=== PATIENT | female | born 1990 | race Caucasian/White ===

== ENCOUNTER → 2024-12-06 14:05 | Outpatient (REF) | payer OTHER, SELFPAY | LOC: HWRAD 14:05 | PROVIDERS: ATTENDING PHYSICIAN Obstetrics & Gynecology | DX: Z13.0 Encounter for screening for diseases of the blood and blood-forming organs and certain disorders involving the immune mechanism (principal); Z34.90 Encounter for supervision of normal pregnancy, unspecified, unspecified trimester; Z11.3 Encounter for screening for infections with a predominantly sexual mode of transmission | CPT/HCPCS: 76801 ==

== ENCOUNTER 2025-04-30 21:45 | Inpatient (IN) | payer OTHER, SELFPAY ==
[2025-04-29 21:49] VITALS: BMI 29.7
[2025-04-29 22:14] VITALS: BP 142/93
[2025-04-29 22:28] LABS: Hematocrit 24.4 % (37.0-47.0); Hemoglobin 8.6 g/dL (12.0-16.0); Mean Corp Hgb Conc. 35.2 g/dL (33.0-37.0); Mean Corpuscular Volume 89.7 fL (81.0-99.0); Nucleated Red Blood Cells % 0 %; Platelet Count 223 10^3/uL (130-400); Red Cell Dist. Width 11.9 % (11.5-14.5)
[2025-04-29 22:29] LABS: Urine Character Clear (Clear)
[2025-04-29 22:43] LABS: Urine Red Blood Cell 0-2 /HPF (0-2); Urine Squamous Cell >30 /LPF (Few); Urine Urothelial Cell 0-2 /LPF (FEW); Urine White Cell 70-80 /HPF (0-5)
[2025-04-29 22:53] LABS: ALT (SGPT) 19 U/L (0-35); AST (SGOT) 22 U/L (14-36); Albumin 3.3 g/dl (3.5-5.0); Alkaline Phosphatase 77 U/L (38-126); Blood Urea Nitrogen 24 mg/dl (7-17); Carbon Dioxide 27 mmol/L (22-30); Chloride 106 mmol/L (98-107); Estimated Creatinine Clearance 45 ml/min; Glucose 93 mg/dl (70-99); Potassium 3.6 mmol/L (3.5-5.1); Sodium 137 mmol/L (135-145); Total Protein 6.3 g/dl (6.3-8.2); eGFR 31.51
[2025-04-29 23:03] LABS: Calcium 15.4 mg/dl (8.4-10.2)
[2025-04-29] MEDS: LR 1000 IV (23:53)
[2025-04-30 00:36] LABS: Vitamin D, 25-OH*** > 126 ng/mL (30-80)
--- NOTE | 2025-04-30 02:52 | DOWNTIME ---
There was a [employer] Downtime on 04/30/2025 from 0100 to 04/30/2025 at 0215. Downtime documentation of patient's care, including medication administrations, has been reconciled in the electronic record per guidelines. Refer to the
patient's paper chart under the miscellaneous tab to see printed paper medication records and downtime forms.
[2025-04-30 06:46] LABS: Hematocrit 23.5 % (37.0-47.0); Hemoglobin 8.3 g/dL (12.0-16.0); Mean Corp Hgb Conc. 35.3 g/dL (33.0-37.0); Mean Corpuscular Volume 89.4 fL (81.0-99.0); Platelet Count 216 10^3/uL (130-400); Red Cell Dist. Width 11.9 % (11.5-14.5)
[2025-04-30] MEDS: LR 1000 IV (06:53)
[2025-04-30 07:26] LABS: ALT (SGPT) 18 U/L (0-35); AST (SGOT) 20 U/L (14-36); Albumin 3.1 g/dl (3.5-5.0); Alkaline Phosphatase 76 U/L (38-126); Blood Urea Nitrogen 24 mg/dl (7-17); Carbon Dioxide 28 mmol/L (22-30); Chloride 109 mmol/L (98-107); Estimated Creatinine Clearance 47 ml/min; Glucose 84 mg/dl (70-99); Potassium 3.6 mmol/L (3.5-5.1); Sodium 138 mmol/L (135-145); Total Protein 6.0 g/dl (6.3-8.2); eGFR 33.41
[2025-04-30 07:48] LABS: Calcium 14.7 mg/dl (8.4-10.2)
--- NOTE | 2025-04-30 11:12 | W.CON.NEPH ---
Consultation
-
Date/Time Consultation Requested: 04/30/2025 9 AM
Date/Time Consultation Performed: 04/30/2025 11 AM
Requesting Provider: Dr. Lee
Performing Provider: Dr. Sims
Reason for Consultation: ADRY, hypercalcemia
Medical History
-
Chief Complaint: Hypercalcemia
History of Present Illness:
This is a 34-year-old female with very limited past medical history if any at all. She may have had some gluten sensitivity in the past. This is her first . It has otherwise been completely uneventful. She does report that 2 years ago
when she had her initial blood work her values were essentially normal. It was commented that her vitamin D was 30 but given her gluten sensitivity that 2000 units of vitamin D a day may be helpful for that. She was only able to obtain 5000 unit
tablets and started taking those at that time. She does state that it did help her gluten sensitivity. She has been taking 5000 units of vitamin D daily since then. During the
She had been doing very well until recently when she had about a 4-day spell of nausea with slight decreased intake. It was recommended that she take Tums which she took for 3 or 4 days at 1000 mg twice daily. She then transition to Pepcid which
had controlled her symptoms. She still drinks approximately 1 gallon of fluid per day mostly distilled water. Given the nausea however, she did have blood work performed which disclosed a creatinine of 2 and a calcium of 15. For this she was sent
to the hospital for admission.
Past Medical History
Gluten sensitivity
Past Surgical History: None
Social History
Tobacco: Non-Smoker
Alcohol: Occasional (Prepregnancy only)
Family History
Heart disease, hypertension, cancer. Ovarian cancer on father side, lung cancer on mother side.
Allergies / Home Medications
Allergy/AdvReac Type Severity Reaction Status Date / Time
penicillin G Allergy Unknown Unknown Verified 04/29/25 21:52
�Medication �Instructions �Recorded �Confirmed �Type
Iron (ferrous sulfate) 1 tab PO DAILY 04/29/25 04/29/25 History
1 tab PO DAILY 04/29/25 04/29/25 History
Review of Systems
-
Negative
All other systems: Negative unless noted
Physical Exam
Vital Signs
Vital Signs
Temp Pulse Resp BP Pulse Ox
98.5 F 81 18 142/93 100
04/29/25 22:14 04/29/25 22:14 04/29/25 22:14 04/29/25 22:14 04/29/25 22:14
Lab Results
WBC 10.6 10^3/uL (4.8-10.8) 04/30/25 06:23
RBC 2.63 10^6/uL (4.20-5.40) L 04/30/25 06:23
Hgb 8.3 g/dL (12.0-16.0) L 04/30/25 06:23
Hct 23.5 % (37.0-47.0) L 04/30/25 06:23
Plt Count 216 10^3/uL (130-400) 04/30/25 06:23
Sodium 138 mmol/L (135-145) 04/30/25 06:23
Potassium 3.6 mmol/L (3.5-5.1) 04/30/25 06:23
Chloride 109 mmol/L (98-107) H 04/30/25 06:23
Carbon Dioxide 28 mmol/L (22-30) 04/30/25 06:23
BUN 24 mg/dl (7-17) H 04/30/25 06:23
Creatinine 2.0 mg/dL (0.6-1.0) H 04/30/25 06:23
eGFR 33.41 04/30/25 06:23
Glucose 84 mg/dl (70-99) 04/30/25 06:23
Calcium 14.7 mg/dl (8.4-10.2) H* 04/30/25 06:23
Albumin 3.1 g/dl (3.5-5.0) L 04/30/25 06:23
Laboratory Tests
04/29/25 04/29/25
21:19 22:19
Vitamin D 25-Hydroxy > 126 H
PTH Intact 6.6 L
February 24, 2023 potassium 3.7, creatinine 0.9, BUN 7, calcium 9.1, vitamin D 30, alk phos 46, A1c 4.6
04/28/2025 iron 61, IBC 440, iron saturation 14, ferritin 40, potassium 3.2, creatinine 2.07, BUN 21, calcium 15, albumin 3.4, alk phos 84, AST 18, ALT 14, hemoglobin 9
Physical Exam
Patient is awake alert oriented and in no distress. Mood and affect were pleasant, insight and judgment were good. Pupils are equal round and reactive to light, extraocular movements are intact, sclera were anicteric. Hearing was normal, ears and
nose are intact. Oropharynx was clear. Neck was supple with trachea midline and no thyromegaly. Heart was regular rate and rhythm without rubs. Lower extremities without edema. Lungs were clear to auscultation bilaterally and with normal
excursion. Abdomen was soft, nontender, with normal active bowel sounds, and no hepatosplenomegaly. Skin was without rash and with normal turgor.
Data Reviewed
-
Labs: Labs Reviewed by me
Old Records: Reviewed
Assessment/Plan
-
Assessment
32-week
ADRY
Hypercalcemia
Hypervitamintosis D
Plan
complete workup for hypercalcemia, additional labs added
24-hour urine collection
Change IV fluids to saline at 150/h
Follow BMP daily
Will keep her in the hospital until calcium level is essentially normal
Check EKG
Okay for IV iron
Discussed with patient and
[2025-04-30 13:06] LABS: Magnesium 1.3 mg/dl (1.6-2.3)
[2025-04-30] MEDS: NSS 1000 IV ×2 (13:09→19:31)
[2025-04-30] MEDS: FLUSH (NSS) 1 FLUSH IV (13:14)
[2025-04-30] MEDS: FERRLECIT 110 MG IV (14:05)
--- NOTE | 2025-04-30 22:22 | PTCARENOTE ---
Pt placed on tele monitor and assessed. most recent calcium 14.7. NSR on monitor, HR 70-100. Pt denies CP/SOB/palpitations at this time. normal heart and lung sounds noted. educated patient to have LDRP nurse contact ICU for any changes in
assessment. will continue to monitor rhythm from ICU.
[2025-04-30 22:26] LABS: 24 Hour Urine Total Volume 4300 ml
[2025-05-01] MEDS: NSS 1000 IV ×3 (02:10→17:10)
[2025-05-01 05:44] LABS: Hematocrit 23.2 % (37.0-47.0); Hemoglobin 8.1 g/dL (12.0-16.0); Mean Corp Hgb Conc. 34.9 g/dL (33.0-37.0); Mean Corpuscular Volume 90.3 fL (81.0-99.0); Platelet Count 194 10^3/uL (130-400); Red Cell Dist. Width 12.0 % (11.5-14.5)
[2025-05-01 06:17] LABS: Blood Urea Nitrogen 25 mg/dl (7-17); Calcium 13.4 mg/dl (8.4-10.2); Carbon Dioxide 25 mmol/L (22-30); Chloride 112 mmol/L (98-107); Estimated Creatinine Clearance 52 ml/min; Glucose 76 mg/dl (70-99); Potassium 3.6 mmol/L (3.5-5.1); Sodium 138 mmol/L (135-145); eGFR 37.92
--- NOTE | 2025-05-01 09:54 | W.PN.NEPH.PH ---
Today's Communication / Plan
-
IVF
Assessment/Plan
-
Assessment
32-week
ADRY
Hypercalcemia
Hypervitamintosis D
Plan
hypercalcemia labs pending
IVF NSS 120ml/hr
higher BP likely from calcium and NSS
Will keep her in the hospital until calcium level is essentially normal
replete Mag
-
-
Date of Service: May 01, 2025
CC / HPI / ROS
-
Chief Complaint:
ADRY, hypercalcemia
History of Present Illness:
BP up
ADRY/Cr down to 1.8
Calcium down to 13.4
Mag low
Review of Systems:
no CP/SOB
edema
Labs
-
Labs:
WBC 9.9 10^3/uL (4.8-10.8) 05/01/25 05:25
RBC 2.57 10^6/uL (4.20-5.40) L 05/01/25 05:25
Hgb 8.1 g/dL (12.0-16.0) L 05/01/25 05:25
Hct 23.2 % (37.0-47.0) L 05/01/25 05:25
Plt Count 194 10^3/uL (130-400) 05/01/25 05:25
Sodium 138 mmol/L (135-145) 05/01/25 05:25
Potassium 3.6 mmol/L (3.5-5.1) 05/01/25 05:25
Chloride 112 mmol/L (98-107) H 05/01/25 05:25
Carbon Dioxide 25 mmol/L (22-30) 05/01/25 05:25
BUN 25 mg/dl (7-17) H 05/01/25 05:25
Creatinine 1.8 mg/dL (0.6-1.0) H 05/01/25 05:25
eGFR 37.92 05/01/25 05:25
Glucose 76 mg/dl (70-99) 05/01/25 05:25
Calcium 13.4 mg/dl (8.4-10.2) H* 05/01/25 05:25
Phosphorus 2.6 mg/dl (2.5-4.5) 04/30/25 12:13
Albumin 3.1 g/dl (3.5-5.0) L 04/30/25 06:23
Physical Exam
-
Vital Signs:
Vital Signs
Temp Pulse Resp BP Pulse Ox
98.5 F 81 18 142/93 100
04/29/25 22:14 04/29/25 22:14 04/29/25 22:14 04/29/25 22:14 04/29/25 22:14
Cardiovascular:: Regular rate and rhythm
Respiratory:: Bilateral: Coarse
Lung Excursion:: Normal
Abdomen:: Nontender and Soft
Bowel Sounds:: Normal
Extremity Edema:: +1: Bilateral:
[2025-05-01] MEDS: MAGNESIUM SULFATE 50 IV (10:16)
[2025-05-01] MEDS: NSS IV (10:34)
--- NOTE | 2025-05-01 11:15 | PTCARENOTE ---
focused cardiac assessment completed @ beside @ 0730; normal S1, S2 heart tones; asymptomatic. SR on monitor; cardiac rhythm strip posted to chart. Also, in contact w primary RN to address low magnesium level madelyn PAGE this AM; IV rider in progress.
Will continue to monitor.
[2025-05-01] MEDS: FERRLECIT 110 MG IV (14:20)
--- NOTE | 2025-05-01 21:39 | PTCARENOTE ---
Assessed pt. at bedside. NSR on tele, HR 60-80s. +1 LE edema. + DP pulses. Pulmonary assessment WNL. Pt. without complaints at this time- encouraged to report any changes to LDRP RN who can then discuss with RECHARGER. Continuing to monitor on tele
monitor.
[2025-05-02] MEDS: NSS 1000 IV ×3 (01:56→22:23)
[2025-05-02 06:12] LABS: Hematocrit 19.7 % (37.0-47.0); Hemoglobin 6.6 g/dL (12.0-16.0); Mean Corp Hgb Conc. 33.5 g/dL (33.0-37.0); Mean Corpuscular Volume 90.0 fL (81.0-99.0); Platelet Count 204 10^3/uL (130-400); Red Cell Dist. Width 12.3 % (11.5-14.5)
[2025-05-02 06:40] LABS: Hematocrit 21.2 % (37.0-47.0); Hemoglobin 7.4 g/dL (12.0-16.0); Mean Corp Hgb Conc. 34.9 g/dL (33.0-37.0); Mean Corpuscular Volume 89.8 fL (81.0-99.0); Platelet Count 196 10^3/uL (130-400); Red Cell Dist. Width 12.0 % (11.5-14.5)
[2025-05-02 07:29] LABS: Calcium 12.4 mg/dl (8.4-10.2); Magnesium 1.4 mg/dl (1.6-2.3)
--- NOTE | 2025-05-02 07:30 | PTCARENOTE ---
Assessed the patient at bedside, A&Ox4, pallor appearance, denied pain throughout, on RA, NSR, B/L LE mild edema, on IVF, GI/ continent. Educated both patient and to notify the team when concerning any abnormal changes. Continue to monitor
on Telemetry.
[2025-05-02 07:35] LABS: Blood Urea Nitrogen 21 mg/dl (7-17); Calcium 12.4 mg/dl (8.4-10.2); Carbon Dioxide 23 mmol/L (22-30); Chloride 115 mmol/L (98-107); Estimated Creatinine Clearance 55 ml/min; Glucose 79 mg/dl (70-99); Potassium 3.2 mmol/L (3.5-5.1); Sodium 137 mmol/L (135-145); eGFR 40.61
[2025-05-02] MEDS: LASIX 20 MG IV (10:40)
--- NOTE | 2025-05-02 12:15 | W.PN.NEPH.PH ---
Today's Communication / Plan
-
cont ivf
replete k and mg
lasix given x 1
Assessment/Plan
-
Assessment
32-week
ADRY
Hypercalcemia
Hypervitamintosis D
Plan
IVF NSS 120ml/hr
Will keep her in the hospital until calcium level is essentially normal
replete Mag 1g IV
K 40meq PO
lasix 20 IV x 1
D/W OB attending , nurse
-
-
Date of Service: May 02, 2025
CC / HPI / ROS
-
Chief Complaint:
ADRY, hypercalcemia
History of Present Illness:
BP up
ADRY/Cr down
Calcium down
Mag low
Review of Systems:
no CP/SOB
edema
Labs
-
Labs:
WBC 8.7 10^3/uL (4.8-10.8) 05/02/25 06:26
RBC 2.36 10^6/uL (4.20-5.40) L 05/02/25 06:26
Hgb 7.4 g/dL (12.0-16.0) L 05/02/25 06:26
Hct 21.2 % (37.0-47.0) L 05/02/25 06:26
Plt Count 196 10^3/uL (130-400) 05/02/25 06:26
Sodium 137 mmol/L (135-145) 05/02/25 05:53
Potassium 3.2 mmol/L (3.5-5.1) L 05/02/25 05:53
Chloride 115 mmol/L (98-107) H 05/02/25 05:53
Carbon Dioxide 23 mmol/L (22-30) 05/02/25 05:53
BUN 21 mg/dl (7-17) H 05/02/25 05:53
Creatinine 1.7 mg/dL (0.6-1.0) H 05/02/25 05:53
eGFR 40.61 05/02/25 05:53
Glucose 79 mg/dl (70-99) 05/02/25 05:53
Calcium 12.4 mg/dl (8.4-10.2) H 05/02/25 05:53
Calcium 12.4 mg/dl (8.4-10.2) H 05/02/25 05:53
Phosphorus 2.6 mg/dl (2.5-4.5) 04/30/25 12:13
Albumin 3.1 g/dl (3.5-5.0) L 04/30/25 06:23
Physical Exam
-
Vital Signs:
Vital Signs
Temp Pulse Resp BP Pulse Ox
98.5 F 78 18 128/82 100
04/29/25 22:14 05/02/25 10:40 04/29/25 22:14 05/02/25 10:40 04/29/25 22:14
Cardiovascular:: Regular rate and rhythm
Respiratory:: Bilateral: Coarse
Lung Excursion:: Normal
Abdomen:: Nontender and Soft
Bowel Sounds:: Normal
Extremity Edema:: +1: Bilateral:
[2025-05-02] MEDS: MAGNESIUM SULFATE 100 IV (12:57)
[2025-05-02] MEDS: KCL 40 MEQ PO (12:57)
[2025-05-02] MEDS: FERRLECIT 110 MG IV (14:22)
[2025-05-02] MEDS: POLYSPORIN OINTMENT 1 APPLIC TOPICAL (16:38)
--- NOTE | 2025-05-02 21:41 | PTCARENOTE ---
Patient is AAOx4 and able to make her needs known. MAEX4. Discussed monitoring with the patient. Does not verbalize any pain or discomfort at this time. Denies nausea. NSR on the monitor with HR in the 70s. Clear breath sounds. Bowel sounds are
audible. SCDs are intact. Patient remains on telemonitor.
[2025-05-02] MEDS: PEPCID 20 MG PO (22:22)
[2025-05-03 06:24] LABS: Hematocrit 21.2 % (37.0-47.0); Hemoglobin 7.2 g/dL (12.0-16.0)
[2025-05-03 06:47] LABS: Blood Urea Nitrogen 15 mg/dl (7-17); Calcium 11.9 mg/dl (8.4-10.2); Carbon Dioxide 22 mmol/L (22-30); Chloride 114 mmol/L (98-107); Estimated Creatinine Clearance 63 ml/min; Glucose 71 mg/dl (70-99); Magnesium 1.3 mg/dl (1.6-2.3); Potassium 3.3 mmol/L (3.5-5.1); Sodium 137 mmol/L (135-145); eGFR 47.19
--- NOTE | 2025-05-03 09:00 | PTCARENOTE ---
Pt assessed in LDRP, AOx3 with no complaints, at bedside, playing cards with pt...S1 S2, SR with 1st degree AVB on tele, HR in 80s. Strip printed and sent to LDRP via tube system. +1 LE edema noted, L>R. AM labs noted and communicated to
Nephrology Dr. Caldwell and primary RN, plan of care discussed. Safe environment ongoing.
[2025-05-03] MEDS: LASIX 40 MG IV (11:46)
[2025-05-03] MEDS: MAGNESIUM SULFATE 50 IV (11:46)
[2025-05-03] MEDS: NSS with KCL 40 MEQ 1000 IV ×2 (11:58→20:37)
--- NOTE | 2025-05-03 12:32 | W.PN.NEPH.PH ---
Today's Communication / Plan
-
see a/p
Assessment/Plan
-
Assessment
32-week
ADRY
Hypercalcemia
Hypervitamintosis D
Plan
IVF NSS 120ml/hr
Will keep her in the hospital until calcium level is essentially normal
replete Mag 2g IV
K 40meq PO and IV
lasix 40 IV x 1
anmeia 2/2 ADRY prolonged most likely-check iron stored replete as indicated
will consider procrit
i do not see need for hematology refer at this time
D/W OB attending , nurse
-
-
Date of Service: May 03, 2025
CC / HPI / ROS
-
Chief Complaint:
ADRY, hypercalcemia
History of Present Illness:
BP up-volume
ADRY/Cr down
Calcium down
Mag low
Review of Systems:
no CP/SOB
edema
Labs
-
Labs:
WBC 8.7 10^3/uL (4.8-10.8) 05/02/25 06:26
RBC 2.36 10^6/uL (4.20-5.40) L 05/02/25 06:26
Hgb 7.2 g/dL (12.0-16.0) L 05/03/25 06:18
Hct 21.2 % (37.0-47.0) L 05/03/25 06:18
Plt Count 196 10^3/uL (130-400) 05/02/25 06:26
Sodium 137 mmol/L (135-145) 05/03/25 06:18
Potassium 3.3 mmol/L (3.5-5.1) L 05/03/25 06:18
Chloride 114 mmol/L (98-107) H 05/03/25 06:18
Carbon Dioxide 22 mmol/L (22-30) 05/03/25 06:18
BUN 15 mg/dl (7-17) 05/03/25 06:18
Creatinine 1.5 mg/dL (0.6-1.0) H 05/03/25 06:18
eGFR 47.19 05/03/25 06:18
Glucose 71 mg/dl (70-99) 05/03/25 06:18
Calcium 11.9 mg/dl (8.4-10.2) H 05/03/25 06:18
Phosphorus 2.6 mg/dl (2.5-4.5) 04/30/25 12:13
Albumin 3.1 g/dl (3.5-5.0) L 04/30/25 06:23
Physical Exam
-
Vital Signs:
Vital Signs
Temp Pulse Resp BP Pulse Ox
98.5 F 78 18 128/82 100
04/29/25 22:14 05/02/25 10:40 04/29/25 22:14 05/02/25 10:40 04/29/25 22:14
Cardiovascular:: Regular rate and rhythm
Respiratory:: Bilateral: Coarse
Lung Excursion:: Normal
Abdomen:: Nontender and Soft
Bowel Sounds:: Normal
Extremity Edema:: +1: Bilateral:
[2025-05-03] MEDS: KCL 40 MEQ PO (12:50)
[2025-05-03] MEDS: FERRLECIT 110 MG IV (13:58)
--- NOTE | 2025-05-03 22:25 | PTCARENOTE ---
Assessed patient at the bedside. AAOx4 and able to make her needs known. Denies pain and nausea. Discussed telemonitoring plan with the patient. Sinus rhythm on the monitor with HR in the 70s. Palpable pulses throughout. Diminished breath sounds.
Pt's receiving NSS with 40 KCL at 100 ml/hr. Foot pump in use.
[2025-05-04] MEDS: NSS with KCL 40 MEQ 1000 IV (06:14)
[2025-05-04 06:25] LABS: Hematocrit 24.2 % (37.0-47.0); Hemoglobin 8.4 g/dL (12.0-16.0)
[2025-05-04 06:44] LABS: Blood Urea Nitrogen 13 mg/dl (7-17); Calcium 11.8 mg/dl (8.4-10.2); Carbon Dioxide 22 mmol/L (22-30); Chloride 113 mmol/L (98-107); Estimated Creatinine Clearance 63 ml/min; Glucose 85 mg/dl (70-99); Iron 191 ug/dl (37-170); Magnesium 1.5 mg/dl (1.6-2.3); Potassium 3.8 mmol/L (3.5-5.1); Sodium 137 mmol/L (135-145); eGFR 47.19
[2025-05-04 06:53] LABS: Total Iron Binding Capacity 395 ug/dl (265-497)
--- NOTE | 2025-05-04 10:20 | PTCARENOTE ---
Pt on telemetry w/ remote cardiac monitoring in ICU. Pt noted by this RN to be in NSR, HR 70's. No ectopy identified. teletypesetter monitor strip printed and placed on pt's chart in LDRP unit. In conferring with pt's assigned LDRP nurse, no order was
found on pt's chart for continuous telemetry monitoring. Pt's JUNIOR PROJECT COORDINATOR on unit having just visited and examined pt, confirmed no order on this pt for cardiac monitoring and stated that pt did not require cardiac monitoring at this time. This RN went
to pt's room w/ pt sitting OOB in chair. Pt AOx3, conversation appropriate. Denied c/o current or hx of chest pain, SOB, palpitations, dizziness. Pt updated on plan of care involving removal of cardiac telemetry and encouraged to notify LDRP RN if
any new symptoms develop including but not limited to: chest pain, sob, dizziness, heart racing, palpitations. Pt verbalized understanding and agreement with plan and reporting symptoms. Cardiac telemetry removed. Skin intact. LDRP RN aware.
[2025-05-04] MEDS: PEPCID 20 MG PO (12:11)
--- NOTE | 2025-05-04 13:44 | PTCARENOTE ---
Dr Martinez notified pt's cardiac telemetry had been removed. Dr Richey response 'that's fine w/me'
[2025-05-04] MEDS: FERRLECIT 110 MG IV (14:18)
--- NOTE | 2025-05-04 14:56 | W.PN.NEPH.PH ---
Today's Communication / Plan
-
Refer to assessment plan
Assessment/Plan
-
Assessment
32-week
ADRY
Hypercalcemia
Hypervitamintosis D
Plan
IVF NSS 120ml/hr
Will keep her in the hospital until calcium level is essentially normal
replete Mag 2g IV again today
Potassium improved stable
lasix 40 IV x 1 agin
anmeia 2/2 ADRY prolonged most likely
Calcium is stagnant so I will increase the fluids again today to 150 cc/h
Hemoglobin improved with diuresis
-
-
Date of Service: May 04, 2025
CC / HPI / ROS
-
Chief Complaint:
ADRY, hypercalcemia
History of Present Illness:
BP up-volume
ADRY/Cr down
Calcium down
Mag low
Review of Systems:
no CP/SOB
edema improved
Labs
-
Labs:
WBC 8.7 10^3/uL (4.8-10.8) 05/02/25 06:26
RBC 2.36 10^6/uL (4.20-5.40) L 05/02/25 06:26
Hgb 8.4 g/dL (12.0-16.0) L 05/04/25 06:18
Hct 24.2 % (37.0-47.0) L 05/04/25 06:18
Plt Count 196 10^3/uL (130-400) 05/02/25 06:26
Sodium 137 mmol/L (135-145) 05/04/25 06:18
Potassium 3.8 mmol/L (3.5-5.1) 05/04/25 06:18
Chloride 113 mmol/L (98-107) H 05/04/25 06:18
Carbon Dioxide 22 mmol/L (22-30) 05/04/25 06:18
BUN 13 mg/dl (7-17) 05/04/25 06:18
Creatinine 1.5 mg/dL (0.6-1.0) H 05/04/25 06:18
eGFR 47.19 05/04/25 06:18
Glucose 85 mg/dl (70-99) 05/04/25 06:18
Calcium 11.8 mg/dl (8.4-10.2) H 05/04/25 06:18
Phosphorus 2.6 mg/dl (2.5-4.5) 04/30/25 12:13
Albumin 3.1 g/dl (3.5-5.0) L 04/30/25 06:23
Physical Exam
-
Vital Signs:
Vital Signs
Temp Pulse Resp BP Pulse Ox
98.5 F 78 18 128/82 100
04/29/25 22:14 05/02/25 10:40 04/29/25 22:14 05/02/25 10:40 04/29/25 22:14
Cardiovascular:: Regular rate and rhythm
Respiratory:: Bilateral: Coarse
Lung Excursion:: Normal
Abdomen:: Nontender and Soft
Bowel Sounds:: Normal
Extremity Edema:: +1: Bilateral:
[2025-05-04] MEDS: LASIX 40 MG IV (15:12)
[2025-05-04] MEDS: NSS 1000 IV ×2 (15:30→21:55)
[2025-05-04] MEDS: MAGNESIUM SULFATE 50 IV (15:31)
[2025-05-04] MEDS: NSS with KCL 40 MEQ IV (15:38)
[2025-05-05] MEDS: NSS 1000 IV ×2 (04:09→07:03)
[2025-05-05 06:53] LABS: Hematocrit 22.1 % (37.0-47.0); Hemoglobin 7.7 g/dL (12.0-16.0)
[2025-05-05 06:57] LABS: Blood Urea Nitrogen 13 mg/dl (7-17); Calcium 10.9 mg/dl (8.4-10.2); Carbon Dioxide 22 mmol/L (22-30); Chloride 113 mmol/L (98-107); Estimated Creatinine Clearance 63 ml/min; Glucose 80 mg/dl (70-99); Magnesium 1.4 mg/dl (1.6-2.3); Potassium 3.6 mmol/L (3.5-5.1); Sodium 136 mmol/L (135-145); eGFR 47.19
--- NOTE | 2025-05-05 10:45 | W.PN.NEPH.PH ---
Today's Communication / Plan
-
Replete magnesium
Stable for discharge
Follow-up BMP fax to Dr. Caldwell on Monday
We will arrange follow-up as outpatient
Assessment/Plan
-
Assessment
32-week
ADRY
Hypercalcemia
Hypervitamintosis D
Plan
Calcium down to 10.9 from 11 point
Patient can be safely discharged from nephrology stable
Patient will require repeat BMP on Monday to be faxed to our office attention Dr. Caldwell
We will arrange follow-up for her in our office
Replete magnesium
-
-
Date of Service: May 05, 2025
CC / HPI / ROS
-
Chief Complaint:
ADRY, hypercalcemia
History of Present Illness:
BP up-volume
ADRY/Cr down
Calcium down to 10.9
Mag low
Review of Systems:
no CP/SOB
edema improved
Labs
-
Labs:
WBC 8.7 10^3/uL (4.8-10.8) 05/02/25 06:26
RBC 2.36 10^6/uL (4.20-5.40) L 05/02/25 06:26
Hgb 7.7 g/dL (12.0-16.0) L 05/05/25 06:14
Hct 22.1 % (37.0-47.0) L 05/05/25 06:14
Plt Count 196 10^3/uL (130-400) 05/02/25 06:26
Sodium 136 mmol/L (135-145) 05/05/25 06:14
Potassium 3.6 mmol/L (3.5-5.1) 05/05/25 06:14
Chloride 113 mmol/L (98-107) H 05/05/25 06:14
Carbon Dioxide 22 mmol/L (22-30) 05/05/25 06:14
BUN 13 mg/dl (7-17) 05/05/25 06:14
Creatinine 1.5 mg/dL (0.6-1.0) H 05/05/25 06:14
eGFR 47.19 05/05/25 06:14
Glucose 80 mg/dl (70-99) 05/05/25 06:14
Calcium 10.9 mg/dl (8.4-10.2) H 05/05/25 06:14
Phosphorus 2.6 mg/dl (2.5-4.5) 04/30/25 12:13
Albumin 3.1 g/dl (3.5-5.0) L 04/30/25 06:23
Physical Exam
-
Vital Signs:
Vital Signs
Temp Pulse Resp BP Pulse Ox
98.5 F 78 18 128/82 100
04/29/25 22:14 05/02/25 10:40 04/29/25 22:14 05/02/25 10:40 04/29/25 22:14
Cardiovascular:: Regular rate and rhythm
Respiratory:: Bilateral: Coarse
Lung Excursion:: Normal
Abdomen:: Nontender and Soft
Bowel Sounds:: Normal
Extremity Edema:: +1: Bilateral:
[2025-05-05] MEDS: MAGNESIUM SULFATE 50 IV (12:15)
[2025-05-05] MEDS: FERRLECIT 110 MG IV (13:55)
[2025-05-06 21:20] LABS: Albumin 3.13 g/dL (3.75-5.01); SPEP IFE Reflex Not Done; Total Protein-Electrophoresis 5.9 g/dL (6.3-8.2)
== END 2025-05-05 15:33 | disposition home or self-care (01) | DRG 683 ==
LOC: LDRP 21:45
PROVIDERS: Obstetrics & Gynecology; ADMITTING PHYSICIAN Obstetrics & Gynecology; OTHER PHYSICIAN Specialist
DX: N17.9 Acute kidney failure, unspecified (principal); O26.833 Pregnancy related renal disease, third trimester; Z3A.32 32 weeks gestation of pregnancy; E83.52 Hypercalcemia; Z80.1 Family history of malignant neoplasm of trachea, bronchus and lung; Z80.41 Family history of malignant neoplasm of ovary; O99.013 Anemia complicating pregnancy, third trimester; D50.9 Iron deficiency anemia, unspecified
CPT/HCPCS: 80048; 80053; 81003; 81015; 81050; 82164; 82306; 82310; 82340; 82570; 82652; 83519; 83540; 83550; 83735; 83970; 84100; 84155; 84156; 84165; 85014; 85018; 85025; 85027; 86850; 86900; 86901; 87086; 93005; J2916

== ENCOUNTER → 2025-05-14 08:22 | Outpatient (REF) | payer OTHER, SELFPAY | LOC: PNTC 08:22 | PROVIDERS: ATTENDING PHYSICIAN Student in an Organized Health Care Education/Training Program | DX: O90.4 Postpartum acute kidney failure (principal); E83.52 Hypercalcemia | CPT/HCPCS: 59025; 76815 ==

== ENCOUNTER 2025-05-15 16:50 | Observation (INO) | payer OTHER, SELFPAY ==
[2025-05-15 17:17] VITALS: BP 126/78; BMI 30.7
[2025-05-15 17:21] LABS: Hematocrit 24.9 % (37.0-47.0); Hemoglobin 8.5 g/dL (12.0-16.0); Mean Corp Hgb Conc. 34.1 g/dL (33.0-37.0); Mean Corpuscular Volume 89.9 fL (81.0-99.0); Nucleated Red Blood Cells % 0 %; Platelet Count 203 10^3/uL (130-400); Red Cell Dist. Width 13.0 % (11.5-14.5)
[2025-05-15 17:36] LABS: ALT (SGPT) 15 U/L (0-35); AST (SGOT) 16 U/L (14-36); Albumin 3.4 g/dl (3.5-5.0); Alkaline Phosphatase 84 U/L (38-126); Blood Urea Nitrogen 13 mg/dl (7-17); Calcium 11.6 mg/dl (8.4-10.2); Carbon Dioxide 25 mmol/L (22-30); Chloride 108 mmol/L (98-107); Estimated Creatinine Clearance 74 ml/min; Glucose 86 mg/dl (70-99); Potassium 3.7 mmol/L (3.5-5.1); Sodium 134 mmol/L (135-145); Total Protein 6.3 g/dl (6.3-8.2); eGFR 56.03
== END 2025-05-15 18:05 | disposition home or self-care (01) ==
LOC: PNTC-IN 16:50
PROVIDERS: ADMITTING PHYSICIAN Obstetrics & Gynecology
DX: O26.893 Other specified pregnancy related conditions, third trimester (principal); E83.52 Hypercalcemia; O99.013 Anemia complicating pregnancy, third trimester; R03.0 Elevated blood-pressure reading, without diagnosis of hypertension; D64.9 Anemia, unspecified; Z3A.34 34 weeks gestation of pregnancy; Z88.0 Allergy status to penicillin
CPT/HCPCS: 59025; 80053; 82570; 84156; 85025; G0378

== ENCOUNTER → 2025-05-21 08:16 | Outpatient (REF) | payer OTHER, SELFPAY | LOC: PNTC 08:16 | PROVIDERS: ATTENDING PHYSICIAN Student in an Organized Health Care Education/Training Program | DX: E83.52 Hypercalcemia (principal); O26.839 Pregnancy related renal disease, unspecified trimester | CPT/HCPCS: 59025; 76815 ==

== ENCOUNTER → 2025-05-28 07:59 | Outpatient (REF) | payer OTHER, SELFPAY | LOC: PNTC 07:59 | PROVIDERS: ATTENDING PHYSICIAN Student in an Organized Health Care Education/Training Program | DX: E83.52 Hypercalcemia (principal); O26.833 Pregnancy related renal disease, third trimester; O36.63X0 Maternal care for excessive fetal growth, third trimester, not applicable or unspecified | CPT/HCPCS: 59025; 76816 ==

== ENCOUNTER 2025-06-03 19:57 | Inpatient (IN) | payer OTHER, SELFPAY ==
[2025-06-03 20:25] VITALS: BP 134/78; BMI 31.3
[2025-06-03 20:54] LABS: Hematocrit 27.9 % (37.0-47.0); Hemoglobin 9.6 g/dL (12.0-16.0); Mean Corp Hgb Conc. 34.4 g/dL (33.0-37.0); Mean Corpuscular Volume 92.4 fL (81.0-99.0); Nucleated Red Blood Cells % 0 %; Platelet Count 217 10^3/uL (130-400); Red Cell Dist. Width 13.0 % (11.5-14.5)
[2025-06-03] MEDS: CYTOTEC 25 MICROGRAM VAG (20:55)
[2025-06-03 21:18] LABS: ALT (SGPT) 13 U/L (0-35); AST (SGOT) 20 U/L (14-36); Albumin 3.5 g/dl (3.5-5.0); Alkaline Phosphatase 101 U/L (38-126); Blood Urea Nitrogen 19 mg/dl (7-17); Calcium 10.8 mg/dl (8.4-10.2); Carbon Dioxide 20 mmol/L (22-30); Chloride 107 mmol/L (98-107); Estimated Creatinine Clearance 69 ml/min; Glucose 96 mg/dl (70-99); Potassium 4.0 mmol/L (3.5-5.1); Sodium 130 mmol/L (135-145); Total Protein 6.7 g/dl (6.3-8.2); eGFR 51.26
[2025-06-03] MEDS: NSS 1000 IV (21:29)
[2025-06-04] MEDS: CYTOTEC 50 MICROGRAM PO ×2 (00:54→05:09)
--- NOTE | 2025-06-04 02:31 | DOWNTIME ---
There was a [employer] Downtime on 06/04/2025 from 0100 to 06/04/2025 at 0215. Downtime documentation of patient's care, including medication administrations, has been reconciled in the electronic record per guidelines. Refer to the
patient's paper chart under the miscellaneous tab to see printed paper medication records and downtime forms.
[2025-06-04] MEDS: NSS 1000 IV ×2 (05:09→13:20)
[2025-06-04 09:12] LABS: ALT (SGPT) 12 U/L (0-35); AST (SGOT) 19 U/L (14-36); Albumin 3.5 g/dl (3.5-5.0); Alkaline Phosphatase 103 U/L (38-126); Blood Urea Nitrogen 16 mg/dl (7-17); Calcium 10.4 mg/dl (8.4-10.2); Carbon Dioxide 17 mmol/L (22-30); Chloride 111 mmol/L (98-107); Estimated Creatinine Clearance 80 ml/min; Glucose 74 mg/dl (70-99); Potassium 4.2 mmol/L (3.5-5.1); Sodium 136 mmol/L (135-145); Total Protein 6.6 g/dl (6.3-8.2); eGFR > 60.00
[2025-06-04] MEDS: CYTOTEC PO ×4 (13:20→21:06)
[2025-06-04] MEDS: PITOCIN 30 UNITS/NSS 500 ML IV (15:05)
--- NOTE | 2025-06-04 16:53 | W.CON.NEPH ---
Consultation
-
Date/Time Consultation Requested: June 04, 2025 at 10 AM
Date/Time Consultation Performed: June 04, 2025 at 4 PM
Requesting Provider: Yoon Dunham
Performing Provider: Dr. Caldwell
Reason for Consultation: Hypercalcemia
Medical History
-
Chief Complaint: Hypercalcemia
History of Present Illness:
This is a 34-year-old female with very limited past medical history if any at all. She may have had some gluten sensitivity in the past. This is her first . Previously seen in the hospital for hypercalcemia and followed up in the office.
Brief history: She does report that 2 years ago when she had her initial blood work her values were essentially normal. It was commented that her vitamin D was 30 but given her gluten sensitivity that 2000 units of vitamin D a day may be helpful
for that. She was only able to obtain 5000 unit tablets and started taking those at that time. She does state that it did help her gluten sensitivity. She has been taking 5000 units of vitamin D daily since then. During the
After further workup it was confirmed hyper vitamin D of 400+ which has slowly been coming down.
Renal consultation for her chronic hyperkalemia improving most recent 05.17.
She is currently in labor and delivery and induction. She was on normal saline 125 cc per my recommendation prior to the most recent blood work.
Past Medical History
Gluten sensitivity
Past Surgical History: None
Social History
Tobacco: Non-Smoker
Alcohol: Occasional (Prepregnancy only)
Family History
Heart disease, hypertension, cancer. Ovarian cancer on father side, lung cancer on mother side.
Allergies / Home Medications
Allergy/AdvReac Type Severity Reaction Status Date / Time
No Known Allergies Allergy Verified 06/03/25 20:28
�Medication �Instructions �Recorded �Confirmed �Type
prenat.vits,georgina,[id number] 1 tab PO DAILY 05/15/25 06/03/25 History
Review of Systems
-
No chest pain or shortness of breath
Physical Exam
Vital Signs
Vital Signs
Temp Pulse Resp BP
98.1 F 81 18 134/78
06/03/25 20:25 06/03/25 20:25 06/03/25 20:25 06/03/25 20:25
Lab Results
WBC 11.9 10^3/uL (4.8-10.8) H 06/03/25 20:43
RBC 3.02 10^6/uL (4.20-5.40) L 06/03/25 20:43
Hgb 9.6 g/dL (12.0-16.0) L 06/03/25 20:43
Hct 27.9 % (37.0-47.0) L 06/03/25 20:43
Plt Count 217 10^3/uL (130-400) 06/03/25 20:43
Sodium 136 mmol/L (135-145) 06/04/25 07:48
Potassium 4.2 mmol/L (3.5-5.1) 06/04/25 07:48
Chloride 111 mmol/L (98-107) H 06/04/25 07:48
Carbon Dioxide 17 mmol/L (22-30) L 06/04/25 07:48
BUN 16 mg/dl (7-17) 06/04/25 07:48
Creatinine 1.2 mg/dL (0.6-1.0) H 06/04/25 07:48
eGFR > 60.00 06/04/25 07:48
Glucose 74 mg/dl (70-99) 06/04/25 07:48
Calcium 10.4 mg/dl (8.4-10.2) H 06/04/25 07:48
Albumin 3.5 g/dl (3.5-5.0) 06/04/25 07:48
Physical Exam
General no acute distress
HEENT no cephalic atraumatic extraocular muscle intact no scleral icterus no JVD neck supple
lungs clear to auscultation bilateral
heart regular S1-S2 positive
abdomen soft nontender positive bowel sounds
extremities no edema pulses present bilateral
Neurologically nonfocal alert and oriented x 3
Skin no lesions no abrasions no petechiae
Psych normal affect no bizarre behavior
Data Reviewed
-
Labs: Labs Reviewed by me, Discussed with Physician, Discussed with Nurse, Discussed with Patient and Discussed with Family
Assessment/Plan
-
Assessment
Active labor and delivery
ADRY resolved with a baseline creatinine 1.3 mild CKD
Hypercalcemia
Hypervitamintosis D
Plan
Current calcium 10.4.
Okay to discontinue IV fluids.
Daily labs.
Will see as needed
Outpatient records reviewed with most recent calcium prior to seeing her on this admission was 11.4 that has improved. Her vitamin D levels are decreasing down to 350.
[2025-06-04] MEDS: SUBLIMAZE 100 MCG EPIDURAL (23:50)
[2025-06-04] MEDS: FENTANYL/BUPIVACAINE 100 EPIDURAL (23:51)
[2025-06-05] MEDS: PITOCIN 30 UNITS/NSS 500 ML IV ×4 (03:48→05:36)
[2025-06-05] MEDS: STADOL 1 MG IV (04:01)
[2025-06-05] MEDS: TRANEXAMIC ACID 100 IV (04:01)
[2025-06-05] MEDS: CYTOTEC 800 MCG RECTAL (04:01)
[2025-06-05] MEDS: HEMABATE 250 MCG IM (04:05)
[2025-06-05 04:29] LABS: Hematocrit 29.1 % (37.0-47.0); Hemoglobin 9.3 g/dL (12.0-16.0); Mean Corp Hgb Conc. 32.0 g/dL (33.0-37.0); Mean Corpuscular Volume 96.0 fL (81.0-99.0); Nucleated Red Blood Cells % 0 %; Platelet Count 201 10^3/uL (130-400); Red Cell Dist. Width 13.2 % (11.5-14.5)
[2025-06-05 04:51] LABS: INR 1.06; PT 14.1 Sec (11.4-14.6)
[2025-06-05 04:52] LABS: APTT 25.9 Sec (23.4-35.0); Fibrinogen 552 MG/DL (199-459)
[2025-06-05 04:53] LABS: ALT (SGPT) 14 U/L (0-35); AST (SGOT) 21 U/L (14-36); Albumin 3.1 g/dl (3.5-5.0); Alkaline Phosphatase 100 U/L (38-126); Blood Urea Nitrogen 15 mg/dl (7-17); Calcium 10.3 mg/dl (8.4-10.2); Carbon Dioxide 15 mmol/L (22-30); Chloride 113 mmol/L (98-107); Estimated Creatinine Clearance 74 ml/min; Glucose 106 mg/dl (70-99); Potassium 3.9 mmol/L (3.5-5.1); Sodium 133 mmol/L (135-145); Total Protein 6.0 g/dl (6.3-8.2); eGFR 56.03
[2025-06-05] MEDS: PRENATAL PLUS 1 TABLET PO (07:40)
[2025-06-05] MEDS: COLACE 100 MG PO ×2 (07:40→20:52)
[2025-06-06 04:38] LABS: Hematocrit 23.9 % (37.0-47.0); Hemoglobin 8.0 g/dL (12.0-16.0)
[2025-06-06 04:57] LABS: ALT (SGPT) 13 U/L (0-35); AST (SGOT) 25 U/L (14-36); Albumin 3.0 g/dl (3.5-5.0); Alkaline Phosphatase 92 U/L (38-126); Blood Urea Nitrogen 19 mg/dl (7-17); Calcium 10.8 mg/dl (8.4-10.2); Carbon Dioxide 22 mmol/L (22-30); Chloride 111 mmol/L (98-107); Estimated Creatinine Clearance 64 ml/min; Glucose 78 mg/dl (70-99); Potassium 3.9 mmol/L (3.5-5.1); Sodium 134 mmol/L (135-145); Total Protein 5.9 g/dl (6.3-8.2); eGFR 47.19
[2025-06-06] MEDS: FEOSOL 325 MG PO (10:10)
[2025-06-06] MEDS: PRENATAL PLUS 1 TABLET PO (10:10)
[2025-06-06] MEDS: COLACE 100 MG PO ×2 (10:12→19:45)
--- NOTE | 2025-06-06 12:09 | W.PN.NEPH.PH ---
Today's Communication / Plan
-
Normal saline. Okay with waiting a few hours to allow her to get some sleep
Assessment/Plan
-
Assessment
Active labor and delivery
ADRY resolved with a baseline creatinine 1.3 mild CKD
Hypercalcemia
Hypervitamintosis D
Plan
Current calcium 10.8 with creatinine slightly up at 1.5
Suggested starting fluids again through tomorrow normal saline 125 cc
Order labs for tomorrow morning prior to discharge as well including vitamin D level
Discussed with nursing staff
-
-
Date of Service: June 06, 2025
CC / HPI / ROS
-
No chest pain or shortness of breath status post delivery 06/05 baby girl.
No difficulty urinating
Fatigue
Labs
-
Labs:
WBC 14.2 10^3/uL (4.8-10.8) H 06/05/25 04:15
RBC 3.03 10^6/uL (4.20-5.40) L 06/05/25 04:15
Hgb 8.0 g/dL (12.0-16.0) L 06/06/25 04:06
Hct 23.9 % (37.0-47.0) L 06/06/25 04:06
Plt Count 201 10^3/uL (130-400) 06/05/25 04:15
Sodium 134 mmol/L (135-145) L 06/06/25 04:06
Potassium 3.9 mmol/L (3.5-5.1) 06/06/25 04:06
Chloride 111 mmol/L (98-107) H 06/06/25 04:06
Carbon Dioxide 22 mmol/L (22-30) 06/06/25 04:06
BUN 19 mg/dl (7-17) H 06/06/25 04:06
Creatinine 1.5 mg/dL (0.6-1.0) H 06/06/25 04:06
eGFR 47.19 06/06/25 04:06
Glucose 78 mg/dl (70-99) 06/06/25 04:06
Calcium 10.8 mg/dl (8.4-10.2) H 06/06/25 04:06
Albumin 3.0 g/dl (3.5-5.0) L 06/06/25 04:06
Physical Exam
-
Vital Signs:
Vital Signs
Temp Pulse Resp BP
98.1 F 81 18 134/78
06/03/25 20:25 06/03/25 20:25 06/03/25 20:25 06/03/25 20:25
Lung Excursion:: Normal
Extremity Edema:: None: Bilateral:
Bowles Catheter: No
Other Findings::
Ambulating without difficulty
Alert in good spirits
[2025-06-06 13:33] LABS: Syphilis/T. pallidum Ab Reflex Negative (Negative)
[2025-06-06] MEDS: NSS 1000 IV (14:42)
--- NOTE | 2025-06-06 16:35 | VATNOTE ---
Called to check recent IV insertion site. 22gauge protective catheter noted in right median antebrachial vein. Appears within normal limits with no redness, swelling, leaking or bleeding noted. Dressing intact. Site flushed easily with 10mls NSS.
Voiced findings to primary care RN. She then resumed IVF via pump and in between each pump cycle with fluids running, blood would pulse back into tubing. observed for a few cycles of pump and blood pulsed back each time. Client not hypertensive. IV
site does not appear near any artery but site removed as a precaution and direct pressure applied for 5 minutes. No bleeding noted. Occlusive dressing applied and primary care RN made aware of findings.
[2025-06-07 05:19] LABS: ALT (SGPT) 13 U/L (0-35); AST (SGOT) 22 U/L (14-36); Albumin 2.8 g/dl (3.5-5.0); Alkaline Phosphatase 78 U/L (38-126); Blood Urea Nitrogen 20 mg/dl (7-17); Calcium 10.5 mg/dl (8.4-10.2); Carbon Dioxide 23 mmol/L (22-30); Chloride 110 mmol/L (98-107); Estimated Creatinine Clearance 74 ml/min; Glucose 75 mg/dl (70-99); Potassium 3.7 mmol/L (3.5-5.1); Sodium 133 mmol/L (135-145); Total Protein 5.7 g/dl (6.3-8.2); eGFR 56.03
[2025-06-07 05:37] LABS: Vitamin D, 25-OH*** > 126 ng/mL (30-80)
[2025-06-07] MEDS: NSS IV ×2 (06:37)
[2025-06-07] MEDS: FEOSOL 325 MG PO (08:49)
[2025-06-07] MEDS: COLACE 100 MG PO (08:49)
[2025-06-07] MEDS: PRENATAL PLUS 1 TABLET PO (08:49)
== END 2025-06-07 11:15 | disposition home or self-care (01) | DRG 768 ==
LOC: LDRP 19:57
PROVIDERS: Obstetrics & Gynecology; ADMITTING PHYSICIAN Obstetrics & Gynecology; OTHER PHYSICIAN Internal Medicine Nephrology
PROC: 3E0P7VZ Introduction of Hormone into Female Reproductive, Via Natural or Artificial Opening (ICD-10-PCS; 2025-06-04)
PROC: 0U7C7DJ Dilation of Cervix with Intraluminal Device, Temporary, Via Natural or Artificial Opening (ICD-10-PCS; 2025-06-04)
PROC: 10907ZC Drainage of Amniotic Fluid, Therapeutic from Products of Conception, Via Natural or Artificial Opening (ICD-10-PCS; 2025-06-04)
PROC: 10E0XZZ Delivery of Products of Conception, External Approach (ICD-10-PCS; 2025-06-05)
PROC: 0KQM0ZZ Repair Perineum Muscle, Open Approach (ICD-10-PCS; 2025-06-05)
PROC: 0W3R7ZZ Control Bleeding in Genitourinary Tract, Via Natural or Artificial Opening (ICD-10-PCS; 2025-06-05)
DX: O13.4 Gestational [pregnancy-induced] hypertension without significant proteinuria, complicating childbirth (principal); Z37.0 Single live birth; N17.9 Acute kidney failure, unspecified; O70.1 Second degree perineal laceration during delivery; Z3A.37 37 weeks gestation of pregnancy; E83.52 Hypercalcemia; O99.284 Endocrine, nutritional and metabolic diseases complicating childbirth
CPT/HCPCS: 80053; 82306; 82570; 83519; 83970; 84100; 84156; 85014; 85018; 85025; 85384; 85610; 85730; 86780; 86850; 86900; 86901

== ENCOUNTER 2025-06-20 09:41 | Emergency (ER) | payer OTHER, SELFPAY ==
[2025-06-20] VITALS (7 sets, daily range): BP systolic 122–137; BP diastolic 76–100; BMI 28.1
--- NOTE | 2025-06-20 10:03 | ED.GENMED ---
History of Present Illness
<Nikita Brizuela PA-C - Last Filed: 06/21/25 09:22>
General
Chief Complaint: Abnormal Lab Value
Time Seen by Provider: 06/20/25 09:59
History of Present Illness
History of Present Illness:
34-year-old female presents to the emergency department for evaluation of elevated calcium. She was recently mated to this hospital in April for hypercalcemia and hypervitaminosis D, calcium downtrended with IV fluids in the ED. This was felt
to be due to in some part acute kidney injury. She has been following as an outpatient with nephrology and calcium has been stable until labs this week. She was noted 2 weeks ago to have a negative PTH like peptide level. She is 2 weeks
and is currently breast-feeding. States that she feels 'great' with only 1 dizzy spell since . Denies any body aches, malaise, or fevers. Not taking any calcium or vitamin D supplementation at this time
Review of Systems
<Nikita Brizuela PA-C - Last Filed: 06/21/25 09:22>
Review of Systems
Allergies reviewed?: Yes
All Other Systems: ROS reviewed and negative except as documented in HPI and ROS
Phy Exam
<Nikita Brizuela PA-C - Last Filed: 06/21/25 09:22>
Physical Exam
Physical Exam:
GEN: Well appearing, NAD, WDWN
HEENT: Oral mucosa moist, no scleral icterus
Cardiac: Regular rate and rhythm, no murmurs
Lung: No respiratory distress, no tachypnea
MSK: No gross deformity or injuries
Skin: Good color, no pallor or jaundice, no rashes
Neuro: AO x3, moves all extremities freely
Psych: Calm, cooperative
Course
<Nikita Brizuela PA-C - Last Filed: 06/21/25 09:22>
Orders/Labs/Results
Orders:
Orders
06/20/25 09:54
CONSULT Urgent
Comment: ER patient
06/20/25 10:01
Electrocardiogram (*1) Urgent
Reason for Study: QTc Monitoring
EKG- Treatment ONCE
06/20/25 10:49
Complete Blood Count/With Diff Urgent
Comprehensive Metabolic Panel Urgent
Intact PTH Includes Calcium Urgent
Ionized Calcium Urgent
Magnesium Urgent
Phosphorus Urgent
Urinalysis Reflex To Culture Urgent
Date Specimen was Collected: 06/20/25
Time Specimen was Collected: 10:11
Urine Microscopic Reflex Cult Urgent
Vitamin D, 25-Oh Urgent
Urine Culture Urgent
ENOCH Source: U
Specimen Description:
Date Specimen was Collected: 06/20/25
Time Specimen was Collected: 10:11
06/20/25 10:53
0.9% Sodium Chloride 1000 ml [Nss] 1,000 ml IV BOLUS
06/20/25 12:26
CT Chest/abd/pel w/wo IV Cont Urgent
Comment:
Reason For Exam: hypercalcemia
06/20/25 13:19
Add On- LAB Urgent
Tests Added?: Vitamin D 25-oh
06/20/25 13:36
0.9% Sodium Chloride 1000 ml [Nss] 2,000 ml IV BOLUS
06/20/25 16:39
CMP [Comprehensive Metabolic Panel] Stat
Abnormal Lab Results
06/20/25 06/20/25
10:49 16:39
RBC 3.46 L 10^6/uL
(4.20-5.40)
Hgb 10.2 L g/dL
(12.0-16.0)
Hct 31.4 L %
(37.0-47.0)
MCHC 32.5 L g/dL
(33.0-37.0)
Chloride 109 H mmol/L
(98-107)
BUN 35 H mg/dl 29 H mg/dl
(7-17) (7-17)
Creatinine 1.8 H mg/dL 1.6 H mg/dL
(0.6-1.0) (0.6-1.0)
Glucose 104 H mg/dl
(70-99)
Calcium 13.1 H* mg/dl 11.3 H mg/dl
(8.4-10.2) (8.4-10.2)
Ionized Calcium 1.78 H* mMOL/L
(1.15-1.33)
Total Protein 6.0 L g/dl
(6.3-8.2)
Albumin 3.3 L g/dl
(3.5-5.0)
Vitamin D 25-Hydroxy > 126 H ng/mL
(30-80)
Ur Occult Blood Reflex 1+ A
(Negative)
Leukocyte Esterase Rfl 2+ A
(Negative)
Urine WBC (Reflex) 26-30 A /HPF
(0-5)
Urine Bacteria (Reflex) Few A
(Negative)
Urine Albumin (Reflex) 1+ A
(Neg - Trace)
06/20/25 10:49
06/20/25 16:39
Vital Signs
Initial and Last Documented VS:
Initial Vital Signs
Temp Pulse Resp BP Pulse Ox
98.9 F 85 16 137/91 98
06/20/25 09:52 06/20/25 09:52 06/20/25 09:52 06/20/25 09:52 06/20/25 09:52
Last Documented Vital Signs
Temp Pulse Resp BP Pulse Ox
98.9 F 59 14 125/85 98
06/20/25 09:52 06/20/25 19:52 06/20/25 19:52 06/20/25 19:52 06/20/25 19:52
<Erwin Blank PA-C - Last Filed: 06/20/25 18:56>
Orders/Labs/Results
Orders:
Orders
06/20/25 09:54
CONSULT Urgent
Comment: ER patient
06/20/25 10:01
Electrocardiogram (*1) Urgent
Reason for Study: QTc Monitoring
EKG- Treatment ONCE
06/20/25 10:49
Complete Blood Count/With Diff Urgent
Comprehensive Metabolic Panel Urgent
Intact PTH Includes Calcium Urgent
Ionized Calcium Urgent
Magnesium Urgent
Phosphorus Urgent
Urinalysis Reflex To Culture Urgent
Date Specimen was Collected: 06/20/25
Time Specimen was Collected: 10:11
Urine Microscopic Reflex Cult Urgent
Vitamin D, 25-Oh Urgent
Urine Culture Urgent
ENOCH Source: U
Specimen Description:
Date Specimen was Collected: 06/20/25
Time Specimen was Collected: 10:11
06/20/25 10:53
0.9% Sodium Chloride 1000 ml [Nss] 1,000 ml IV BOLUS
06/20/25 12:26
CT Chest/abd/pel w/wo IV Cont Urgent
Comment:
Reason For Exam: hypercalcemia
06/20/25 13:19
Add On- LAB Urgent
Tests Added?: Vitamin D 25-oh
06/20/25 13:36
0.9% Sodium Chloride 1000 ml [Nss] 2,000 ml IV BOLUS
06/20/25 16:39
CMP [Comprehensive Metabolic Panel] Stat
Abnormal Lab Results
06/20/25 06/20/25
10:49 16:39
RBC 3.46 L 10^6/uL
(4.20-5.40)
Hgb 10.2 L g/dL
(12.0-16.0)
Hct 31.4 L %
(37.0-47.0)
MCHC 32.5 L g/dL
(33.0-37.0)
Chloride 109 H mmol/L
(98-107)
BUN 35 H mg/dl 29 H mg/dl
(7-17) (7-17)
Creatinine 1.8 H mg/dL 1.6 H mg/dL
(0.6-1.0) (0.6-1.0)
Glucose 104 H mg/dl
(70-99)
Calcium 13.1 H* mg/dl 11.3 H mg/dl
(8.4-10.2) (8.4-10.2)
Ionized Calcium 1.78 H* mMOL/L
(1.15-1.33)
Total Protein 6.0 L g/dl
(6.3-8.2)
Albumin 3.3 L g/dl
(3.5-5.0)
Vitamin D 25-Hydroxy > 126 H ng/mL
(30-80)
Ur Occult Blood Reflex 1+ A
(Negative)
Leukocyte Esterase Rfl 2+ A
(Negative)
Urine WBC (Reflex) 26-30 A /HPF
(0-5)
Urine Bacteria (Reflex) Few A
(Negative)
Urine Albumin (Reflex) 1+ A
(Neg - Trace)
06/20/25 10:49
06/20/25 16:39
Vital Signs
Initial and Last Documented VS:
Initial Vital Signs
Temp Pulse Resp BP Pulse Ox
98.9 F 85 16 137/91 98
06/20/25 09:52 06/20/25 09:52 06/20/25 09:52 06/20/25 09:52 06/20/25 09:52
Last Documented Vital Signs
Temp Pulse Resp BP Pulse Ox
98.9 F 59 14 125/85 98
06/20/25 09:52 06/20/25 19:52 06/20/25 19:52 06/20/25 19:52 06/20/25 19:52
<Nikita Brizuela PA-C - Last Filed: 06/21/25 09:22>
Comment
Comment:
EKG independently interpreted by me shows a normal sinus rhythm at a rate of 68 with a normal QT interval
*Pulse Oximetry
SaO2: 98
Oxygen Mode of Delivery: Room air
<Erwin Blank PA-C - Last Filed: 06/20/25 18:56>
*Pulse Oximetry
Patient hypoxic: no
*Critical Care Note
Total Time (30-74mins, 75-104mins- exclusive of procedures): Not Applicable
<Nikita Brizuela PA-C - Last Filed: 06/21/25 09:22>
Update Note
Update Note:
Case discussed with nephrology. Plan will be to hydrate the patient with 3 L of crystalloid and recheck chemistry panel, if creatinine and calcium improving may be suitable for discharge home. Will obtain CT chest abdomen pelvis for malignancy
evaluation due to the persistent hypercalcemia without clear cause otherwise
<Erwin Blank PA-C - Last Filed: 06/20/25 18:56>
Update Note
Update Note:
Case discussed with nephrology. Plan will be to hydrate the patient with 3 L of crystalloid and recheck chemistry panel, if creatinine and calcium improving may be suitable for discharge home. Will obtain CT chest abdomen pelvis for malignancy
evaluation due to the persistent hypercalcemia without clear cause otherwise
6:55 PM. Fluids were finished calcium now down 11.3. Creatinine is 1.6. CT of the chest abdomen pelvis was negative. Reached out to nephrology. Patient expresses their desire to go home. No objection from nephrology. Stable for discharge
ED Attending Note
<Nikita Brizuela PA-C - Last Filed: 06/21/25 09:22>
-
Portions of this chart may have been created with voice recognition software.� Occasional wrong word or��sound alike� substitutions may have occurred due to the inherent limitations of voice recognition software.
Discharge Plan
Departure
Patient Disposition: Home (Routine Discharge)
Date of Disposition: 06/20/25
Time of Disposition: 18:56
Patient with high blood pressure during this ER visit?: No
Discharge Problem:
Hypercalcemia
Prescriptions:
No Action
acetaminophen 325 mg Tablet
650 mg PO Q4HPRN PRN (Reason: mild pain) Qty: 0 0RF
ferrous sulfate [FeroSul] 325 mg (65 mg iron) Tablet
325 mg PO DAILY Qty: 30 0RF
28-800 mg-mcg Tablet
1 tab PO DAILY
Referrals:
UNKNOWN - PT DOES,NOT KNOW [Family Provider]
Activity Restrictions/Additional Instructions:
Please follow-up with nephrology. Return here if needed otherwise
Interventions
Interventions:
*Risk Screen - Suicide Last Done: 06/20/25 09:55
*General Assessment Last Done: 06/20/25 09:55
*Neglect/Abuse Screening Last Done: 06/20/25 10:21
*ED- Fall Risk Assessment Last Done: 06/20/25 10:10
*ED COVID-19 Vaccine History Last Done: 06/20/25 10:09
*ED Influenza Vaccine History Last Done: 06/20/25 10:09
*Nursing Disposition Last Done: 06/20/25 20:15
Discharge Date and Time
Discharge Date/Time: 06/20/25 20:15
Print Language: URDU
[2025-06-20 10:56] LABS: Hematocrit 31.4 % (37.0-47.0); Hemoglobin 10.2 g/dL (12.0-16.0); Mean Corp Hgb Conc. 32.5 g/dL (33.0-37.0); Mean Corpuscular Volume 90.8 fL (81.0-99.0); Nucleated Red Blood Cells % 0 %; Platelet Count 342 10^3/uL (130-400); Red Cell Dist. Width 12.2 % (11.5-14.5)
[2025-06-20 10:58] LABS: Urine Character Clear (Clear)
[2025-06-20 11:16] LABS: ALT (SGPT) 17 U/L (0-35); AST (SGOT) 20 U/L (14-36); Albumin 4.2 g/dl (3.5-5.0); Alkaline Phosphatase 66 U/L (38-126); Blood Urea Nitrogen 35 mg/dl (7-17); Calcium 13.1 mg/dl (8.4-10.2); Carbon Dioxide 28 mmol/L (22-30); Chloride 102 mmol/L (98-107); Estimated Creatinine Clearance 51 ml/min; Glucose 91 mg/dl (70-99); Magnesium 2.0 mg/dl (1.6-2.3); Potassium 3.8 mmol/L (3.5-5.1); Sodium 138 mmol/L (135-145); Total Protein 7.2 g/dl (6.3-8.2); eGFR 37.92
[2025-06-20 11:41] LABS: Urine Red Blood Cell 0-2 /HPF (0-2); Urine White Cell 26-30 /HPF (0-5)
[2025-06-20] MEDS: NSS 1000 IV (11:55)
--- NOTE | 2025-06-20 12:54 | LACTATION ---
Addendum entered and electronically signed by ADELE Kang 06/20/25 16:04:
*hypercalcemia
Original Note:
Sanjuanita delivered baby Louann 15 days ago. Sanjuanita has been pumping and Louann is exclusively breastmilk fed. Sanjuanita was diagnosed with hypercalcinemia when after she delivered due to vitamin D supplementation. She had a scheduled blood test yesterday
and her calcium levels increased from 10 to 13 mg/dL. Her physician sent her to our ED for evaluation, but Sanjuanita says she has not had any symptoms. She reports that Louann has been a happy baby and Sanjuanita hasn't noticed any symptoms in the baby.
Louann's bottle intake has decreased slightly over the past few days, but she takes 16-20 oz. per day. I encouraged Sanjuanita to aim for 2-3 oz. at least 8 times per day.
I contacted the [facility] to ask if Sanjuanita's high calcium levels are concerning for her breastfed baby. The rep is reaching out to the icer machine operator and will contact me back.
[2025-06-20] MEDS: NSS 2000 IV (13:48)
--- NOTE | 2025-06-20 14:18 | W.CON.NEPH ---
Consultation
-
Date/Time Consultation Requested: June 20, 2025
Date/Time Consultation Performed: June 20, 2025 at 1 PM
Requesting Provider: Dr. Brizuela
Performing Provider: Dr. Caldwell
Reason for Consultation: Hypercalcemia
Medical History
-
Chief Complaint: Hypercalcemia
History of Present Illness:
This is a 34-year-old female with very limited past medical history if any at all. She may have had some gluten sensitivity in the past. 2 weeks. Previously seen in the hospital for hypercalcemia and followed up in the office.
Brief history: She does report that 2 years ago when she had her initial blood work her values were essentially normal. It was commented that her vitamin D was 30 but given her gluten sensitivity that vitamin D a day may be helpful for that. She
was taking abundance of cholecalciferol up to 20,000 IUs daily for many years.
Full outpatient workup is inconsistent though her vitamin D 25 remains elevated as well as her /25. PTH RP had been mildly elevated but most recently 4.3 elevated. VERN enzyme normal.
Patient was asked by our office to come in for a calcium of 13.1 and acute kidney injury with a creatinine of 1.9.
Renal consultation for laboratory
Presents with her and baby in the ER
She otherwise has no complaints she says she feels better than she has
Social history non-smoker no alcohol no illicit drug use with 1
Family history no history of renal disease
Past Medical History
Gluten sensitivity
Past Surgical History: None
Social History
Tobacco: Non-Smoker
Alcohol: Occasional (Prepregnancy only)
Family History
Heart disease, hypertension, cancer. Ovarian cancer on father side, lung cancer on mother side.
Allergies / Home Medications
Allergy/AdvReac Type Severity Reaction Status Date / Time
gluten AdvReac gluten Verified 06/20/25 09:56
intolerence
�Medication �Instructions �Recorded �Confirmed �Type
acetaminophen 325 mg tablet 650 mg (2 x 325 mg) PO Q4HPRN PRN 06/07/25 06/20/25 Rx
mild pain #0 tabs
ferrous sulfate 325 mg (65 mg 325 mg PO DAILY #30 tabs 06/07/25 06/20/25 Rx
iron) tablet (FeroSul)
vits no.133-ferrous 1 tab PO DAILY Supplement 06/20/25 06/20/25 History
fumarate 28 mg-folic acid 800 mcg
tablet ()
Review of Systems
-
No chest pain no shortness of breath no nausea or vomiting
All other systems: Negative unless noted
Physical Exam
Vital Signs
Vital Signs
Temp Pulse Resp BP Pulse Ox
98.9 F 58 14 134/90 98
06/20/25 09:52 06/20/25 13:30 06/20/25 13:30 06/20/25 13:00 06/20/25 10:03
Lab Results
WBC 4.9 10^3/uL (4.8-10.8) 06/20/25 10:49
RBC 3.46 10^6/uL (4.20-5.40) L 06/20/25 10:49
Hgb 10.2 g/dL (12.0-16.0) L 06/20/25 10:49
Hct 31.4 % (37.0-47.0) L 06/20/25 10:49
Plt Count 342 10^3/uL (130-400) 06/20/25 10:49
Sodium 138 mmol/L (135-145) 06/20/25 10:49
Potassium 3.8 mmol/L (3.5-5.1) 06/20/25 10:49
Chloride 102 mmol/L (98-107) 06/20/25 10:49
Carbon Dioxide 28 mmol/L (22-30) 06/20/25 10:49
BUN 35 mg/dl (7-17) H 06/20/25 10:49
Creatinine 1.8 mg/dL (0.6-1.0) H 06/20/25 10:49
eGFR 37.92 06/20/25 10:49
Glucose 91 mg/dl (70-99) 06/20/25 10:49
Calcium 13.1 mg/dl (8.4-10.2) H* 06/20/25 10:49
Phosphorus 3.6 mg/dl (2.5-4.5) 06/20/25 10:49
Albumin 4.2 g/dl (3.5-5.0) 06/20/25 10:49
Physical Exam
No lower extremity edema. No focal deficit. Awake and alert x 3. No rashes. Normal lung movement. No JVD
Data Reviewed
-
Labs: Labs Reviewed by me, Discussed with Physician, Discussed with Patient and Discussed with Family
Assessment/Plan
-
Assessment
ADRY resolved with a baseline creatinine 1.3 mild CKD
Hypercalcemia recurrent
Hypervitamintosis D
Plan
Calcium 13.1 with albumin normal although this could be from prerenal azotemia as a few weeks ago was 2.8 though that was during
Understandably the patient does not prefer to stay in the hospital as she has a 2-week-old and is breast-feeding
I am more concerned about her ADRY and making sure that the hypercalcemia does not cause any progression of that.
I discussed this with her we will give 3 L of normal saline and recheck blood work.
I will also do CAT scan with abdomen pelvis with IV contrast to rule out any granulomatous disease
If we see a decent improvement with the IV fluids would be okay to to discharge her with close follow-up
May be some validity for steroids but will address this outpatient
Discussed with the ER attending as to the plan
[2025-06-20 14:53] LABS: Vitamin D, 25-OH*** > 126 ng/mL (30-80)
[2025-06-20 17:05] LABS: ALT (SGPT) 14 U/L (0-35); AST (SGOT) 17 U/L (14-36); Albumin 3.3 g/dl (3.5-5.0); Alkaline Phosphatase 62 U/L (38-126); Blood Urea Nitrogen 29 mg/dl (7-17); Calcium 11.3 mg/dl (8.4-10.2); Carbon Dioxide 28 mmol/L (22-30); Chloride 109 mmol/L (98-107); Estimated Creatinine Clearance 57 ml/min; Glucose 104 mg/dl (70-99); Potassium 3.8 mmol/L (3.5-5.1); Sodium 139 mmol/L (135-145); Total Protein 6.0 g/dl (6.3-8.2); eGFR 43.67
== END 2025-06-20 20:15 | disposition home or self-care (01) ==
LOC: EMR 09:41
PROVIDERS: Internal Medicine Nephrology; Physician Assistant; EMERGENCY PHYSICIAN Student in an Organized Health Care Education/Training Program
DX: E83.52 Hypercalcemia (principal); N18.2 Chronic kidney disease, stage 2 (mild); Z80.1 Family history of malignant neoplasm of trachea, bronchus and lung; Z80.41 Family history of malignant neoplasm of ovary; Z82.49 Family history of ischemic heart disease and other diseases of the circulatory system
CPT/HCPCS: 99284; 96360; 96361; 71270; 74178; 80053; 81003; 81015; 82306; 82330; 83735; 83970; 84100; 85025; 87086; 93005; Q9967